=== PATIENT | male | born 1985 | race Caucasian/White ===

== ENCOUNTER 2017-11-08 22:15 | Emergency (ER) | payer BC, OTHER ==
[2017-11-08 22:52] LABS: #Basophils 0.1 thou/uL (0.0-0.2); #Eosinphils 0.1 thou/uL (0.0-0.7); #Lymphocytes 2.2 thou/uL (1.20-3.40); #Monocytes 0.6 thou/uL (0.11-0.59); #Neutrophils 3.7 thou/uL (1.40-6.50); %Basophils 0.9 % (0.0-1.0); %Eosinophils 1.5 % (0.0-10.0); %Lymphocytes 33.7 % (21.0-51.0); %Monocytes 8.5 % (0.0-10.0); %Neutrophils 55.4 % (42.0-75.0); Hemoglobin 15.2 g/dL (14.0-18.0); Mean Corpuscular HGB CONC 33.4 g/dL (32.0-36.0); Mean Platelet Volume 7.5 fL (7.4-10.4); Platelet Count 253 thou/uL (130-400); RBC Distribution Width 11.9 % (11.5-14.5); Red Blood Cell (RBC) Count 5.25 mill/uL (4.70-6.10); White Blood Cell (WBC) Count 6.7 thou/uL (4.8-10.8)
[2017-11-08 23:30] LABS: ALT (SGPT) 19 U/L (8-55); AST (SGOT) 27 U/L (5-34); Albumin 4.8 g/dL (3.5-5.0); Alkaline Phosphatase 48 U/L (40-150); Anion Gap 14 mmol/L (10-20); BUN (Urea Nitrogen) 15 mg/dL (8.9-20.6); Bilirubin, Total 0.7 mg/dL (0.2-1.2); Calc. Creatinine Clearance 0 mL/min (70-130); Calcium 9.7 mg/dL (7.8-10.44); Carbon Dioxide 28 mmol/L (22-29); Chloride 103 mmol/L (98-107); Estimated GFR-MDRD 71; Globulin 3.2 g/dL (2.4-3.5); Glucose 100 mg/dL (70-105); Potassium 3.9 mmol/L (3.5-5.1); Sodium 141 mmol/L (136-145)
[2017-11-08 23:39] LABS: CO2 Tension 42.5 mmHg (35.0-45.0); pH, Arterial 7.41 (7.35-7.45)
[2017-11-08 23:40] LABS: Actual Bicarbonate (HCO3a) 26.3 mEq/L (22-26); Analyzer IN Cardio ER; Base Excess (BEa) 1.4 mEq/L (0 (+/-) 2.5); Hematocrit-ABG 45.5 % (42.0-52.0); Hemoglobin (Hb) 15.3 g/dL (14.0-18.0); O2 Tension (PaO2) 79.8 mmHg (80.0-100.0)
[2017-11-08 23:40] LABS: Bilirubin Negative (Negative); Blood, Urine Negative (Negative); Clarity CLEAR (Clear); Glucose, Urine (Dipstick) Negative (Negative); Leukocyte Negative (Negative); Nitrite Negative (Negative); Protein, Urine (Dipstick) Negative (Neg-Trace); Specific Gravity, Urine 1.027 (1.002-1.036); pH, Urine 6.5 (5.0-9.0)
[2017-11-08 23:41] LABS: ALV-art Gradient 16.805 (0-20); Puncture Site RRA
== END 2017-11-09 00:34 | disposition home or self-care (01) ==
LOC: ERS 22:15
DX: E86.0 Dehydration (principal)
CPT/HCPCS: 36415; 80053; 81003; 82805; 85025; 96360

== ENCOUNTER 2018-10-08 11:05 | Emergency (ER) | payer BC, OTHER ==
--- NOTE | 2018-10-08 12:08 | ULT ---
TESTICULAR ULTRASOUND: Date: 10/08/18 INDICATION: Right scrotal pain. FINDINGS: Both testicles have normal sonographic appearance. Color Doppler with spectral analysis indicates nor mal and equal blood flow to both testicles. No significant hydrocele. No evidence of inguinal hernia identified by ultrasound. IMPRESSION: Unremarkable testicular ultrasound exam. POS: [facility]
== END 2018-10-08 12:40 | disposition home or self-care (01) ==
LOC: ERS 11:05
DX: N50.811 Right testicular pain (principal); R10.30 Lower abdominal pain, unspecified
CPT/HCPCS: 76870; 93976